=== PATIENT | male | born 2005 ===

== ENCOUNTER 2025-07-23 18:30 | Emergency (ER) | payer OTHER | END 2025-07-23 19:46 | disposition left against medical advice (07) | LOC: EMS 18:30 | DX: F10.239 Alcohol dependence with withdrawal, unspecified (principal); Z53.21 Procedure and treatment not carried out due to patient leaving prior to being seen by health care provider; Y90.9 Presence of alcohol in blood, level not specified | CPT/HCPCS: 99281; Z7502 ==